=== PATIENT | female | born 1995 | race Two or more races ===

== ENCOUNTER 2025-07-02 21:39 | Outpatient (CLI) | payer BC ==
[2025-07-02 20:57] VITALS: BP 117/75
[2025-07-02 22:00] VITALS: BP 117/75
== END 2025-07-02 22:17 | disposition left against medical advice (07) ==
LOC: OBS/DEL 21:39
PROVIDERS: ATTEND Obstetrics & Gynecology
DX: O26.893 Other specified pregnancy related conditions, third trimester (principal); Z3A.29 29 weeks gestation of pregnancy